=== PATIENT | female | born 1965 | race Caucasian/White ===

== ENCOUNTER 2019-07-17 06:47 | Day surgery (SDC) | payer OTHER ==
[2019-07-17 07:27] VITALS: BMI 39.9
[2019-07-17] MEDS ORDERED: fentaNYL CITRATE 250 MCG/5 ML VIAL ONE (10:03)
[2019-07-17] MEDS ORDERED: MIDAZOLAM HCL 2 MG/2 ML SINGLE DOSE VIAL ONE (10:03)
[2019-07-17] MEDS ORDERED: ceFAZolin 2 GRAM PREMIX BAG IVPB ONE (10:20)
[2019-07-17] MEDS ORDERED: KETAMINE HCL 200 MG/20 ML VIAL ONE (10:23)
[2019-07-17] MEDS ORDERED: LIDOCAINE HCL 1%, 10 MG/ML (20ML VIAL) NR ONE ×2 (10:26)
[2019-07-17] MEDS ORDERED: PROPOFOL 20 ML ONE ×2 (10:39)
[2019-07-17] MEDS ORDERED: LIDOCAINE HCL 1%, 10 MG/ML (20ML VIAL) ONE (11:22)
--- NOTE | 2019-07-17 11:57 | OP ---
DATE OF OPERATION: 07/17/2019 PREOPERATIVE DIAGNOSIS: Abnormal left mammography. POSTOPERATIVE DIAGNOSIS: Abnormal left mammography. PROCEDURE: Left wire localized excisional biopsy. SURGEON: Shelby Farris MD ANESTHESIA: Local with IV sedation. ESTIMATED BLOOD LOSS: Minimal. COMPLICATIONS: None. This was a sterile procedure. INDICATIONS: The patient presented with a screening mammogram that noted a question of a density in the lower inner left breast posteriorly. She had an ultrasound that questioned a nodule in the 9 o'clock location thought to likely correspond to the mammographic density. She underwent an ultrasound-guided needle biopsy; however, the post biopsy clip was medial to the density originally seen. She then had a stereotactic needle biopsy, and that clip turned out to be in the outer part of the left breast so the density was not sampled by the radiologist, and therefore, the recommendation is an excision of this. The procedure was discussed with all of the questions answered. PROCEDURE IN DETAIL: Patient was brought to [facility] in [place]. Taken to breast imaging where a wire was used to localize the density in the inner left breast posteriorly. She was then brought to the operating room, and after IV sedation and IV antibiotics, the left breast was prepped and draped in the usual sterile fashion. The area in the inner left breast was anesthetized with 1% lidocaine without epinephrine. A radial incision was made in the left breast 9 o'clock location. A wire was used to as a guide to get down to the area, and this was excised en bloc around the entire hook and stiffener. There was still some tissue left posteriorly. Excised that separately and sent it together with a specimen to mammography for an x-ray. Posteriorly now there was only pectoralis muscle seen. Specimen radiograph showed the wire to be intact in the specimen. In the additional tissue, there appeared to be a more dense lesion than the rest of the tissue. This was then sent to Pathology for permanent section. Hemostasis was assured with electrocautery. The parenchyma was approximated with interrupted 2-0 Vicryl. Skin approximated with interrupted 3-0 Vicryl, running 4-0 Prolene. A sterile dressing with Tegaderm, 4 X 4 was applied. She tolerated the procedure well. Was taken to recovery in good condition. Lurdes [id number]
[2019-07-17] MEDS ORDERED: DEXAMETHASONE SOD PHOSPHATE 4 MG/1 ML VIAL ONE (12:12)
[2019-07-17] MEDS ORDERED: ceFAZolin SODIUM 1 GM VIAL ONE ×2 (12:12)
[2019-07-17] MEDS ORDERED: LIDOCAINE HCL/PF 2% SDV 5ML VIAL ONE (12:12)
[2019-07-17] MEDS ORDERED: oxyCODONE HCL 5 MG TABLET PO PRN (12:22)
[2019-07-17] MEDS ORDERED: ONDANSETRON 4 MG/2 ML VIAL IVPUSH PRN (12:22)
[2019-07-17] MEDS ORDERED: LACTATED RINGERS SOLUTION 1,000 ML IV SCH (12:30)
[2019-07-17 13:15] VITALS: TEMP 98.1
[2019-07-17 13:29] VITALS: BP 145/73; PULSE 65
--- NOTE | 2019-07-20 11:00 | PATH ---
Surgical Pathology Report Patient Name: KAMILA GRIFFITH [facility]. Rec. #: [id number] /Age/Gender: 1965 (Age: 54) / F Account: [id number] Location: [facility] SURGICAL Taken: 07/17/2019 Received: 07/17/2019 Reported: 07/20/2019 Physicians: Shelby Farris M.D. Specimen(s) Received LEFT BREAST EXCISION Clinical History Mass on left mammogram lower inner quadrant Mammographic findings: Probably benign Final Diagnosis BREAST, MASS, LEFT, EXCISION: BENIGN BREAST PARENCHYMA WITH FOCAL STROMAL FIBROSIS AND RARE MICROCALCIFICATIONS. BENIGN SKELETAL MUSCLE PRESENT. Electronically Signed Rachel Ferguson M.D. Gross Description Received fresh on an AccuGrid labeled "left breast excision of mass," is a 4.2 x 3.5 x 1.0 cm irregular, unoriented portion of fibroadipose tissue with a needle localization wire present. There is no skin or nipple present. There is a 1.8 x 1.5 x 0.9 cm unoriented portion of fibroadipose tissue separately received on the same AccuGrid. The smaller portion does not have a needle localization wire. There is no skin or nipple present on the smaller specimen. The larger portion of tissue is inked blue and the smaller portion is inked black. The specimens are serially sectioned. Sectioning reveals foci of white fibrous tissue. No mass is identified. The specimen is entirely submitted in 11 cassettes as follows: [id number] and sequentially submitted larger portion of tissue; [id number] and sequentially submitted smaller portion of tissue. Total formalin fixation time: Approximately 7 hours 07/17/201907/17/2019
== END 2019-07-17 13:00 | disposition home or self-care (01) ==
LOC: JASU-SURG 06:47
PROVIDERS: ATTEND Surgery
PROC: 0HBU0ZX Excision of Left Breast, Open Approach, Diagnostic (ICD-10-PCS; principal; 2019-07-17 11:00)
DX: D24.2 Benign neoplasm of left breast (principal); E11.9 Type 2 diabetes mellitus without complications; I10 Essential (primary) hypertension
CPT/HCPCS: 19281; 76098-TC-FY; 82962; 88307-TC; 94760